=== PATIENT | male | born 1985 | race Caucasian/White ===

== ENCOUNTER 2019-05-17 14:47 | Inpatient (IN) | payer OTHER ==
[2019-05-17 16:58] VITALS: BMI 29.5
--- NOTE | 2019-05-17 17:54 | HP ---
COWS - Scale Resting Pulse: 1= TN 81-100 Sweatin=Flushed/Facial Moisture Restless Observation: 1= Difficult to Sit Still Pupil Size: 0= Normal to Room Light Bone or Joint Aches: 1= Mild Discomfort Runny Nose/ Eye Tearin= Nasal Congestion GI Upset > 30mins: 0= None Tremor Observation: 1= Tremor [place], Not Seen Yawning Observation: 0= None Anxiety or Irritability: 0= None Goose Flesh Skin: 0=Smooth Skin COWS Score: 7 CIWA Score - Admission Criteria OASAS Guidelines: Admission for Medically Managed Detox: Requires at least one of the followin. CIWA greater than 12 2. Seizures within the past 24 hours 3. Delirium tremens within the past 24 hours 4. Hallucinations within the past 24 hours 5. Acute intervention needed for co occurring medical disorder 6. Acute intervention needed for co occurring psychiatric disorder 7. Severe withdrawal that cannot be handled at a lower level of care (continued vomiting, continued diarrhea, abnormal vital signs) requiring intravenous medication and/or fluids 8. Admission ROS [facility] Chief Complaint: detox from heorin and crack Allergies/Adverse Reactions: Allergies Allergy/AdvReac Type Severity Reaction Status Date / Time No Known Allergies Allergy Verified 05/17/19 16:41 History of Present Illness: 33M chronic bursitis of Right shoulder, Right-hand dominant, hiatal hernia, social drinking, polysubstance abuse(heroin, crack, pain pills, tobacco, vaping) , recently taking 1.5-2bundles heroin a day for 4-5days. Last usage was 05/16/19 in evening. Was planning to go to [facility] for detox today but they refused due to broken drug needle in Right hand. Recently, seen at [place] [facility], for a broken needle in Right hand on 05/16/19. They could not retrieve the needle. Had LUE cellulitis, evaluated at and discharged with Cephalexin(500mg , q6h; on day 2 of 10d). Has detox'd x2 at [facility], and x2 at [facility]. Works in construction. Lives with parents. - Ebola screening Have you traveled outside of the country in the last 21 days: No Have you had contact with anyone from an Ebola affected area: No - Review of Systems Constitutional: Fever (fever yesterday morning) EENT: denies: Blurred Vision, Double Vision, Nose Congestion Respiratory: denies: Cough, SOB with Exertion, SOB at Rest, Wheezing, Productive cough Cardiac: denies: Chest Pain, Lightheadedness, Palpitations GI: denies: Constipated, Diarrhea, Nausea, Rectal Bleeding, Vomiting, Tarry Stools : denies: Burning, Dysuria Musculoskeletal: reports: Back Pain, Joint Pain (Right shower) Integumentary: reports: Pruritus (itching to b/l forearms) Neuro: denies: Headache, Numbness, Ataxia, Dizziness Hematology: denies: Blood Clots Psychiatric: reports: Orientated x3, Anxious Patient History - Patient Medical History Hx Anemia: No Hx Asthma: No Hx Chronic Obstructive Pulmonary Disease (COPD): No Hx Cancer: No Hx Cardiac Disorders: No Hx Hypertension: No Hx Hypercholesterolemia: No Hx Pacemaker: No HX Cerebrovascular Accident: No Hx Seizures: No Hx Dementia: No Hx Diabetes: No Hx Gastrointestinal Disorders: Yes (GERD) Hx Liver Disease: No Hx Genitourinary Disorders: No Hx Sexually Transmitted Disorders: No Hx Renal Disease (ESRD): No Hx Thyroid Disease: No Hx Human Immunodeficiency Virus (HIV): No Hx Hepatitis C: No Hx Depression: No Hx Suicide Attempt: No Hx Bipolar Disorder: No Hx Schizophrenia: No - Patient Surgical History Past Surgical History: No Hx Neurologic Surgery: No Hx Cataract Extraction: No Hx Cardiac Surgery: No Hx Lung Surgery: No Hx Breast Surgery: No Hx Breast Biopsy: No Hx Abdominal Surgery: No Hx Appendectomy: No Hx Cholecystectomy: No Hx Genitourinary Surgery: No Hx Section: No Hx Orthopedic Surgery: No Anesthesia Reaction: No - PPD History Date: 09/15/13 - Smoking Cessation Smoking history: Current every day smoker Have you smoked in the past 12 months: Yes Aproximately how many cigarettes per day: 20 Cigars Per Day: 0 Hx Chewing Tobacco Use: No Initiated information on smoking cessation: No - Substances abused Crack Substance route: Injection Frequency: Daily Amount used: $25 Age of first use: 31 Date of last use: 05/16/19 Heroin Substance route: Injection Frequency: Daily Amount used: 2 BUNDLES Age of first use: 27 Date of last use: 05/17/19 Family Disease History - Family Disease History Family Disease History: Other: Grandparent (Paternal GM: HTN) Other Family History: none Admission Physical Exam [facility] - Vital Signs Vital Signs: Vital Signs - 24 hr 05/17/19 16:48 Temperature 98.6 F Pulse Rate 97 H Respiratory 18 Rate Blood Pressure 139/83 - Physical General Appearance: Yes: Disheveled. No: No Apparent Distress HEENTM: No: Pale Conjunctivae R, Pale Conjunctivae L, Scleral Ictenus R, Scleral Ictenus L Respiratory: Yes: Lungs Clear, Normal Breath Sounds. No: Chest Non-Tender, Labored Respiration, No Accessory Muscle Use, Rapid RR, Accessory Muscle Use, Wheezing, Expiration Neck: Yes: Within Normal Limits Cardiology: Yes: Regular Rate, S1, S2. No: Systolic Murmur Abdominal: Yes: Soft. No: Distended, Guarding, Rebound, Tenderness Back: Yes: Within Normal Limits Extremities: Yes: Other (Left hand with marker line, mild nonpitting edema. Right hand with tenderness to ABduction to Right hand, mild TTP of lateral radial head at site of former incision. Multiplel punctate excoriated lesion to forearms b/l) Neurological: Yes: Fully Oriented Integumentary: Yes: Dry, Warm Inpatient Rehab Admission - Rehab Decision to Admit Inpatient rehab admission?: No
[2019-05-17] MEDS ORDERED: MAGNESIUM CITRATE 300 ML BOTTLE PO PRN (18:35)
[2019-05-17] MEDS ORDERED: MENTHOL/PHENOL 1 EACH UD MM PRN (18:35)
[2019-05-17] MEDS ORDERED: ONDANSETRON *ODT* 4 MG TABLET SL PRN (18:35)
[2019-05-17] MEDS ORDERED: METHADONE HCL 10 MG TABLET (FOR DETOX USE ONLY) PO ONE (18:35)
[2019-05-17] MEDS ORDERED: ACETAMINOPHEN 325 MG TABLET (FP) PO PRN ×2 (18:35)
[2019-05-17] MEDS ORDERED: BISMUTH SUBSALICYLATE 524 MG/30 ML UD PO PRN (18:35)
[2019-05-17] MEDS ORDERED: MAGNESIUM HYDROX 2400MG/30ML ORAL SUSPENSION 30 ML CUP PO PRN (18:35)
[2019-05-17] MEDS ORDERED: MAG HYDROX/AL HYDROX/SIMETH 30 ML UNIT-DOSE CUP PO PRN (18:35)
--- NOTE | 2019-05-17 19:35 | PN ---
Teaching Attending Note Name of Resident: Bryce Little ATTENDING PHYSICIAN STATEMENT I saw and evaluated the patient. I reviewed the resident's note and discussed the case with the resident. I agree with the resident's findings and plan as documented. SUBJECTIVE: opiate dep in withdrawal fb hand with celllulitis OBJECTIVE: in withdrawal localized ttp ASSESSMENT AND PLAN: admit to detox protocol local care abx hand surgery p eval if increased pain, ttp
[2019-05-17] MEDS: NICOTINE 7 MG/24 HOURS TOPICAL PATCH TD SCH (20:31)
[2019-05-17] MEDS: THIAMINE HCL 100 MG TABLET (FP) PO SCH (22:19)
[2019-05-17] MEDS: MELATONIN 5 MG TABLETS PO PRN (22:19)
[2019-05-17] MEDS: hydrOXYzine PAMOATE 25 MG CAPSULE (FP) PO PRN (22:20)
[2019-05-17] MEDS: IBUPROFEN 400 MG TABLET (FP) PO PRN (22:32)
[2019-05-18] MEDS ORDERED: METHADONE HCL 10 MG TABLET (FOR DETOX USE ONLY) ONE (09:22)
[2019-05-18] MEDS ORDERED: METHADONE HCL 5 MG TABLET (FOR DETOX USE ONLY) ONE (09:23)
[2019-05-18] MEDS ORDERED: METHADONE (DETOX) 20 MG, METHADONE (DETOX) 5 MG PO ONE (10:00)
[2019-05-18] MEDS: METHOCARBAMOL 500 MG TABLET PO PRN ×3 (10:15→22:22)
[2019-05-18] MEDS: PRENATAL VITAMINS W/ FOLIC ACID TABLET (FP) PO SCH (10:16)
[2019-05-18] MEDS: IBUPROFEN 400 MG TABLET (FP) PO PRN ×3 (10:16→22:21)
[2019-05-18] MEDS: SULFAMETHOXAZOLE/TRIMETHOPRIM 400MG/80MG S.S. TABLET PO SCH ×3 (10:17→22:20)
[2019-05-18] MEDS: NICOTINE 7 MG/24 HOURS TOPICAL PATCH TD SCH (10:18)
--- NOTE | 2019-05-18 10:39 | PN ---
BHS COWS - Scale Resting Pulse: 0= [place] 80 or Below Sweatin= Chills/Flushing Restless Observation: 0= Sits Still Pupil Size: 1= Pupils >than Normal Bone or Joint Aches: 2= Severe Diffuse Aches Runny Nose/ Eye Tearin= Nasal Congestion GI Upset > 30mins: 0= None Tremor Observation of Outstretched Hands: 2= Slight Tremor Visible Yawning Observation: 1= 1-2x During Session Anxiety or Irritability: 2=Irritable/Anxious Goose Flesh Skin: 3=Piloerection COWS Score: 13 BHS Progress Note (SOAP) Subjective: 33 years old male admitted on 05/17/19 for acute opiate withdrawal sx management c/o chronic shoulders 07/01 pain treated with "cortison shot" every 6 months last "shot" 09/2018 discuss medication assisted treatment program right wrist wrapped with Kerlix refuses to be examine but c/o shoulders needed "shot" ADL's independent feed self Objective: 05/18/19 10:39 Vital Signs Temperature 97.3 F L 05/18/19 09:15 Pulse Rate 76 05/18/19 09:15 Respiratory Rate 18 05/18/19 09:15 Blood Pressure 120/75 05/18/19 09:15 O2 Sat by Pulse Oximetry (%) 05/18/19 10:46 lab pending Assessment: 05/18/19 10:47 opiate withdrawal sx alert oriented x 3 irritable 05/18/19 10:48 right wrist cellulitis treated with bactrim ds bid patient tolerated well Plan: continue methadone detox regimen
[2019-05-18 11:47] LABS: HEMATOCRIT 35.7 % (35.4-49); HEMOGLOBIN 12.6 GM/dL (11.7-16.9); MCH 31.1 pg (25.7-33.7); MCHC 35.3 g/dl (32.0-35.9); MEAN CELL VOLUME 88.1 fl (80-96); MEAN PLT VOLUME 7.7 fl (7.5-11.1); PLATELET COUNT 240 K/MM3 (134-434); RBC 4.06 M/mm3 (4.00-5.60); WHITE BLOOD COUNT 6.1 K/mm3 (4.0-10.0)
[2019-05-18 12:26] LABS: ALBUMIN 3.1 g/dl (3.4-5.0); BILIRUBIN,TOTAL 0.4 mg/dL (0.2-1); BLOOD UREA NITROGEN 9.8 mg/dL (7-18); CALCIUM 8.8 mg/dL (8.5-10.1); CREATININE 0.7 mg/dL (0.55-1.3); POTASSIUM 3.5 mmol/L (3.5-5.1)
[2019-05-18] MEDS: RANITIDINE HCL 150 MG TABLET (FP) PO SCH ×2 (13:56→22:43)
[2019-05-18] MEDS: cloNIDine HCL 0.1 MG TABLET PO PRN (22:21)
[2019-05-18] MEDS: THIAMINE HCL 100 MG TABLET (FP) PO SCH (22:21)
[2019-05-18] MEDS: MELATONIN 5 MG TABLETS PO PRN (22:23)
[2019-05-19] MEDS: METHOCARBAMOL 500 MG TABLET PO PRN ×3 (05:45→21:59)
[2019-05-19] MEDS: IBUPROFEN 400 MG TABLET (FP) PO PRN ×3 (05:45→21:59)
[2019-05-19] MEDS ORDERED: METHADONE HCL 10 MG TABLET (FOR DETOX USE ONLY) PO ONE (10:00)
[2019-05-19] MEDS: NICOTINE 7 MG/24 HOURS TOPICAL PATCH TD SCH (10:02)
[2019-05-19] MEDS: PRENATAL VITAMINS W/ FOLIC ACID TABLET (FP) PO SCH (10:03)
[2019-05-19] MEDS: RANITIDINE HCL 150 MG TABLET (FP) PO SCH ×2 (10:03→21:59)
[2019-05-19] MEDS: SULFAMETHOXAZOLE/TRIMETHOPRIM 400MG/80MG S.S. TABLET PO SCH ×2 (10:03→21:59)
--- NOTE | 2019-05-19 10:15 | PN ---
BHS COWS - Scale Resting Pulse: 0= [place] 80 or Below Sweatin= Chills/Flushing Restless Observation: 0= Sits Still Pupil Size: 0= Normal to Room Light Bone or Joint Aches: 1= Mild Discomfort Runny Nose/ Eye Tearin= None GI Upset > 30mins: 1= Stomach Cramp Tremor Observation of Outstretched Hands: 2= Slight Tremor Visible Yawning Observation: 2= >3x During Session Anxiety or Irritability: 2=Irritable/Anxious Goose Flesh Skin: 0=Smooth Skin COWS Score: 9 S Progress Note (SOAP) Subjective: doing well with methadone detox regimen c/o chronic shoulders pain requesting "cortison" shot discuss medication assisted treatment program for pain management as well as avoid opiate induced withdrawal sx patient ate 80% breakfast tolerate food and fluid well ambulating from bed to bathroom steady gait ADLs independent Objective: 05/19/19 10:17 Vital Signs Temperature 98.4 F 05/19/19 09:11 Pulse Rate 71 05/19/19 09:11 Respiratory Rate 17 05/19/19 09:11 Blood Pressure 109/70 05/19/19 09:11 O2 Sat by Pulse Oximetry (%) Laboratory Last Values WBC 6.1 K/mm3 (4.0-10.0) 05/18/19 07:30 RBC 4.06 M/mm3 (4.00-5.60) 05/18/19 07:30 Hgb 12.6 GM/dL (11.7-16.9) 05/18/19 07:30 Hct 35.7 % (35.4-49) D 05/18/19 07:30 MCV 88.1 fl (80-96) 05/18/19 07:30 MCH 31.1 pg (25.7-33.7) 05/18/19 07:30 MCHC 35.3 g/dl (32.0-35.9) 05/18/19 07:30 RDW 13.0 % (11.9-15.9) 05/18/19 07:30 Plt Count 240 K/MM3 (134-434) 05/18/19 07:30 MPV 7.7 fl (7.5-11.1) 05/18/19 07:30 Sodium 143 mmol/L (136-145) 05/18/19 07:30 Potassium 3.5 mmol/L (3.5-5.1) 05/18/19 07:30 Chloride 106 mmol/L (98-107) 05/18/19 07:30 Carbon Dioxide 28 mmol/L (21-32) 05/18/19 07:30 Anion Gap 9 MMOL/L (8-16) 05/18/19 07:30 BUN 9.8 mg/dL (7-18) 05/18/19 07:30 Creatinine 0.7 mg/dL (0.55-1.3) 05/18/19 07:30 Est GFR (CKD-EPI)AfAm 145.74 05/18/19 07:30 Est GFR (CKD-EPI)NonAf 125.75 05/18/19 07:30 Random Glucose 74 mg/dL (74-106) 05/18/19 07:30 Calcium 8.8 mg/dL (8.5-10.1) 05/18/19 07:30 Total Bilirubin 0.4 mg/dL (0.2-1) 05/18/19 07:30 AST 25 U/L (15-37) 05/18/19 07:30 ALT 46 U/L (13-61) 05/18/19 07:30 Alkaline Phosphatase 58 U/L (45-117) 05/18/19 07:30 Total Protein 6.0 g/dl (6.4-8.2) L 05/18/19 07:30 Albumin 3.1 g/dl (3.4-5.0) L 05/18/19 07:30 RPR Titer Nonreactive (NONREACTIVE) 05/18/19 07:30 lab noted Assessment: 05/19/19 10:18 opiate withdrawal sx alert oriented x 3 speech clearly and coherently steady gait skin moist warm denies dizziness no nausea no vomiting Plan: continue methadone detox regimen
[2019-05-19] MEDS: THIAMINE HCL 100 MG TABLET (FP) PO SCH (21:58)
[2019-05-19] MEDS: cloNIDine HCL 0.1 MG TABLET PO PRN (23:35)
[2019-05-19] MEDS: MELATONIN 5 MG TABLETS PO PRN (23:35)
[2019-05-19] MEDS: hydrOXYzine PAMOATE 25 MG CAPSULE (FP) PO PRN (23:36)
[2019-05-20] MEDS: METHOCARBAMOL 500 MG TABLET PO PRN ×3 (04:35→22:03)
[2019-05-20] MEDS: IBUPROFEN 400 MG TABLET (FP) PO PRN ×3 (04:35→22:04)
[2019-05-20] MEDS ORDERED: METHADONE (DETOX) 10 MG, METHADONE (DETOX) 5 MG PO ONE (10:00)
[2019-05-20] MEDS ORDERED: METHADONE HCL 10 MG TABLET (FOR DETOX USE ONLY) PO ONE (10:00)
[2019-05-20] MEDS: SULFAMETHOXAZOLE/TRIMETHOPRIM 400MG/80MG S.S. TABLET PO SCH ×2 (10:17→22:02)
[2019-05-20] MEDS: RANITIDINE HCL 150 MG TABLET (FP) PO SCH ×2 (10:17→22:03)
[2019-05-20] MEDS: PRENATAL VITAMINS W/ FOLIC ACID TABLET (FP) PO SCH (10:17)
[2019-05-20] MEDS: NICOTINE 7 MG/24 HOURS TOPICAL PATCH TD SCH (10:23)
--- NOTE | 2019-05-20 13:01 | PN ---
BHS COWS - Scale Resting Pulse: 0= [place] 80 or Below Sweatin= No chills or Flushing Restless Observation: 1= Difficult to Sit Still Pupil Size: 1= Pupils >than Normal Bone or Joint Aches: 1= Mild Discomfort Runny Nose/ Eye Tearin= Nasal Congestion GI Upset > 30mins: 1= Stomach Cramp Tremor Observation of Outstretched Hands: 1= Tremor [place], Not Seen Yawning Observation: 1= 1-2x During Session Anxiety or Irritability: 2=Irritable/Anxious Goose Flesh Skin: 0=Smooth Skin COWS Score: 9 S Progress Note (SOAP) Subjective: alert,irritable,anxious,interrupted sleep,pain in the body,less swelling and redness of right hand Objective: 05/20/19 12:58 Vital Signs Temperature 97.0 F L 05/20/19 09:27 Pulse Rate 80 05/20/19 09:27 Respiratory Rate 18 05/20/19 09:27 Blood Pressure 119/73 05/20/19 09:27 O2 Sat by Pulse Oximetry (%) Assessment: 05/20/19 12:59 withdrawal symptom but less Plan: continue detox methadone regimen,discharge in am ,continue bactrim ds 1 tab po bid for 7 days,has appointment to see hand surgeon tomorrow for evaluation of fb and cellulitis of right hand
[2019-05-20] MEDS: MELATONIN 5 MG TABLETS PO PRN (22:02)
[2019-05-20] MEDS: THIAMINE HCL 100 MG TABLET (FP) PO SCH (22:03)
[2019-05-20] MEDS: hydrOXYzine PAMOATE 25 MG CAPSULE (FP) PO PRN (22:06)
[2019-05-21] MEDS: METHOCARBAMOL 500 MG TABLET PO PRN (05:49)
[2019-05-21] MEDS ORDERED: METHADONE HCL 5 MG TABLET (FOR DETOX USE ONLY) PO ONE (06:00)
[2019-05-21] MEDS: IBUPROFEN 400 MG TABLET (FP) PO PRN (06:07)
[2019-05-21 06:33] VITALS: BP 125/79; PULSE 75; TEMP 96.7
--- NOTE | 2019-05-21 07:57 | PN ---
S CIWA - CIWA Score Nausea/Vomitin-No Nausea/No Vomiting Muscle Tremors: 1-None Visible, but [place] Anxiety: 1-Mildly Anxious Agitation: 1-Slight > Activity Paroxysmal Sweats: No Perspiration Orientation: 0-Oriented Tacttile Disturbances: 0-None Auditory Disturbances: 0-None Visual Disturbances: 0-None Headache: 0-None Present CIWA-Ar Total Score: 3 BHS Progress Note (SOAP) Subjective: alert,no complaint Objective: 05/21/19 07:55 Vital Signs Temperature 96.7 F L 05/21/19 06:32 Pulse Rate 75 05/21/19 06:32 Respiratory Rate 18 05/21/19 06:32 Blood Pressure 125/79 05/21/19 06:32 O2 Sat by Pulse Oximetry (%) Assessment: 05/21/19 07:55 detox completed,no withdrawal symptom Plan: discharge today,follow up with hand surgeon for fb in right hand,follow up with [facility] as arrangement
--- NOTE | 2019-05-21 08:02 | DS ---
[facility] Detox Discharge Summary Admission Date: 05/17/19 Discharge Date: 05/21/19 - History Present History: Cocaine Dependence, Opioid Dependence Additional Comments: continue bactrim ds 1 tab po bid for 7 dats,to [facility] as arrangement,to see hand surgeon as arrangement Pertinent Past History: ivdu fb of right hand with cellulitis - Physical Exam Results Vital Signs: Vital Signs Temperature 96.7 F L 05/21/19 06:32 Pulse Rate 75 05/21/19 06:32 Respiratory Rate 18 05/21/19 06:32 Blood Pressure 125/79 05/21/19 06:32 O2 Sat by Pulse Oximetry (%) Pertinent Admission Physical Exam Findings: withdrawal sign and symptom Laboratory Last Values WBC 6.1 K/mm3 (4.0-10.0) 05/18/19 07:30 RBC 4.06 M/mm3 (4.00-5.60) 05/18/19 07:30 Hgb 12.6 GM/dL (11.7-16.9) 05/18/19 07:30 Hct 35.7 % (35.4-49) D 05/18/19 07:30 MCV 88.1 fl (80-96) 05/18/19 07:30 MCH 31.1 pg (25.7-33.7) 05/18/19 07:30 MCHC 35.3 g/dl (32.0-35.9) 05/18/19 07:30 RDW 13.0 % (11.9-15.9) 05/18/19 07:30 Plt Count 240 K/MM3 (134-434) 05/18/19 07:30 MPV 7.7 fl (7.5-11.1) 05/18/19 07:30 Sodium 143 mmol/L (136-145) 05/18/19 07:30 Potassium 3.5 mmol/L (3.5-5.1) 05/18/19 07:30 Chloride 106 mmol/L (98-107) 05/18/19 07:30 Carbon Dioxide 28 mmol/L (21-32) 05/18/19 07:30 Anion Gap 9 MMOL/L (8-16) 05/18/19 07:30 BUN 9.8 mg/dL (7-18) 05/18/19 07:30 Creatinine 0.7 mg/dL (0.55-1.3) 05/18/19 07:30 Est GFR (CKD-EPI)AfAm 145.74 05/18/19 07:30 Est GFR (CKD-EPI)NonAf 125.75 05/18/19 07:30 Random Glucose 74 mg/dL (74-106) 05/18/19 07:30 Calcium 8.8 mg/dL (8.5-10.1) 05/18/19 07:30 Total Bilirubin 0.4 mg/dL (0.2-1) 05/18/19 07:30 AST 25 U/L (15-37) 05/18/19 07:30 ALT 46 U/L (13-61) 05/18/19 07:30 Alkaline Phosphatase 58 U/L (45-117) 05/18/19 07:30 Total Protein 6.0 g/dl (6.4-8.2) L 05/18/19 07:30 Albumin 3.1 g/dl (3.4-5.0) L 05/18/19 07:30 RPR Titer Nonreactive (NONREACTIVE) 05/18/19 07:30 - Treatment Hospital Course: Detox Protocol Followed, Detoxed Safely, Responded well, Discharged Condition Good, Rehab Referral Accepted Patient has Accepted a Rehab Referral to: [facility] - Medication Discharge Medications: Ambulatory Orders Esomeprazole Mag Trihydrate [Nexium] 40 mg PO DAILY #30 capsule.ec 11/02/13 Cephalexin [Keflex] 500 mg PO QID 05/17/19 Sulfamethoxazole/Trimethoprim [Bactrim SS -] 1 each PO BID 7 Days #14 tablet - Diagnosis (1) Opioid dependence Current Visit: No Status: Active (2) Cocaine dependence Current Visit: No Status: Acute (3) Gastroesophageal reflux disease Current Visit: No Status: Acute (4) Foreign body of right hand Current Visit: Yes Status: Acute (5) Cellulitis of right hand Current Visit: Yes Status: Acute - AMA Did Patient Leave Against Medical Advice: No
[2019-05-21] MEDS ORDERED: METHADONE HCL 10 MG TABLET (FOR DETOX USE ONLY) PO ONE (10:00)
[2019-05-22] MEDS ORDERED: METHADONE HCL 5 MG TABLET (FOR DETOX USE ONLY) PO ONE (06:00)
== END 2019-05-21 09:28 | disposition home or self-care (01) | DRG 773 ==
LOC: YASAS 14:47 → Y3N 19:16
PROVIDERS: ADMIT Surgery; ATTEND Surgery
PROC: HZ2ZZZZ Detoxification Services for Substance Abuse Treatment (ICD-10-PCS; principal; 2019-05-17)
DX: F11.23 Opioid dependence with withdrawal (principal); F14.20 Cocaine dependence, uncomplicated; F17.210 Nicotine dependence, cigarettes, uncomplicated; K21.9 Gastro-esophageal reflux disease without esophagitis; L03.113 Cellulitis of right upper limb; S60.551A Superficial foreign body of right hand, initial encounter; W46.1XXA Contact with contaminated hypodermic needle, initial encounter; Y93.89 Activity, other specified; Y92.89 Other specified places as the place of occurrence of the external cause; Y99.8 Other external cause status
CPT/HCPCS: 36415; 80053; 85027; 86593; J0735

== ENCOUNTER 2020-07-10 15:18 | Inpatient (IN) | payer OTHER ==
--- OUTSIDE RECORDS SUMMARY | 2020-07-10 15:23 | XMS ---
:1985 Author Organization [facility] Care Team Providers Name Role Phone ADRIAN GIBBS Unavailable Unavailable MOHSEN GUALLPA Unavailable Unavailable NURSE, CONSULT Unavailable Unavailable Kiesha Gerber DO Unavailable Unavailable MALACHI ROSALES Unavailable Unavailable TRAN AGUILAR Unavailable Unavailable Re-disclosure Warning The records that you are about to access may contain information from federally- assisted alcohol or drug abuse programs. If such information is present, then the following federally mandated warning applies: This information has been disclosed to you from records protected by federal confidentiality rules (42 CFR part 2). The federal rules prohibit you from making any further disclosure of this information unless further disclosure is expressly permitted by the written consent of the person to whom it pertains or as otherwise permitted by 42 CFR part 2. A general authorization for the release of medical or other information is NOT sufficient for this purpose. The Federal rules restrict any use of the information to criminally investigate or prosecute any alcohol or drug abuse patient.The records that you are about to access may contain highly sensitive health information, the redisclosure of which is protected by Article 27-F of the [facility] Public Health law. If you continue you may haveaccess to information: Regarding HIV / AIDS; Provided by facilities licensed or operated by the [facility] Office of Mental Health; or Provided by the [facility] Office for People With Developmental Disabilities. If such information is present, then the following [facility] mandated warning applies: This information has been disclosed to you from confidential records which are protected by state law. State law prohibits you from making any further disclosure of this information without the specific written consent of the person to whom it pertains, or as otherwise permitted by law. Any unauthorized further disclosure in violation of state law may result in a fine or mcc sentence or both. A general authorization for the release of medical or other information is NOT sufficient authorization for further disclosure. Allergies and Adverse Reactions Type Description Substance Reaction Status Data Source(s ) Miscellaneous allergy Nut Tree Nut Tree ITCHY [facility] Food allergy grape grape PRURITUS/ITCHIN [facility] Food allergy peanut peanut ITCHY MOUTH/THR [facility] Encounters Encounter Providers Location Date Indications Data Source(s ) Emergency Attender: 05/16/2019 NEEDLE BROKE IN [place] [facility] Kiesha Gerber 09:54:00 PM RIGHT [facility] EDT - 05/17/2019 01:20:00 AM EDT NEEDLE BROKE IN RIGHT ARM WALK Patient discharged. Inpatient Attender: RODGER KAMINSKI 05/09/2019 opiate [place] VITTORIOAdmitter: RODGER 08:52:00 AM EDT [facility] VITTORIOConsultant: - 05/10/2019 ADRIANRED MILNERTASEConsultant: 03:00:00 PM EDT CONSULT NURSEConsultant: RODGER AGUILAR opiate withdrawal Patient discharged. Inpatient Attender: RODGER KAMINSKI 05/04/2019 OPIATE [place] VITTORIOAttender: MOHSEN 10:18:00 PM EDT [facility] RIZQALLAAdmitter: RODGER - 05/09/2019 VITTORIOConsultant: 08:50:00 AM EDT RODGER VITTORIOConsultant: MALACHI ROSALES OPIATE WITHDRAWAL Patient discharged. P 02/04/2011 05:41:00 PM EDT FOR SUTUR E REMOVAL [facility] (ARRV-AUTO) FOR SUTURE REMOVAL (ARRV-AUTO) Insurance Providers Payer name Policy type Policy ID Covered Covered democrat's Policy P branden / Coverage democrat ID relationship to Joe Inf ormation type joe BEACON [id number] SP [id number] 300 HEALTH STRGY-AFF BEACON/AFFIN [id number] Patient is [id number] ITY HEALTH Insured PLAN AFFINITY [id number] Patient is [id number] HEALTH PLAN Insured BEACON [id number] SP [id number] 300 HEALTH STRGY-AFF [place] [id number] PT [id number] 300 HEALTH PLAN [place] [id number] SP [id number] 300 HEALTH STRGY-AFF SELF PAY PT SLIDING SCALE 0% [place] [id number] [place] [id number] Insured Problems, Conditions, and Diagnoses Code Display Name Description Problem Type Effective Data Dates Source(s) Z79.899 Other nursing home OTHER USP Diagnosis 05/18/2019 [place] (current) drug (CURRENT) DRUG 11:30:00 AM Hospi [facility] therapy THERAPY EDT Z86.19 Personal history PERSONAL HISTORY Diagnosis 05/18/2019 [place]ck of other OF OTHER 11:30:00 AM Hospital infectious and INFECTIOUS AND EDT parasitic diseases PARASITIC DISEASES F17.210 Nicotine NICOTINE Diagnosis 05/18/2019 [place] dependence, DEPENDENCE, 11:30:00 AM Hospital cigarettes, CIGARETTES, EDT uncomplicated UNCOMPLICATED F12.20 Cannabis CANNABIS Diagnosis 05/18/2019 [place] dependence, DEPENDENCE, 11:30:00 AM Hospital uncomplicated UNCOMPLICATED EDT F14.20 Cocaine COCAINE Diagnosis 05/18/2019 [place] dependence, DEPENDENCE, 11:30:00 AM Hospital uncomplicated UNCOMPLICATED EDT F11.23 Opioid dependence OPIOID DEPENDENCE Diagnosis 05/18/2019 [place] with withdrawal WITH WITHDRAWAL 11:30:00 AM [facility] pital EDT F19.10 Other psychoactive F19.10 Diagnosis 05/16/2019 [place] substance abuse, 11:45:00 PM Hospita l uncomplicated EDT M79.5 Residual foreign M79.5 Diagnosis 05/16/[address] body in soft 11:45:00 PM Hospital tissue EDT Y99.9 Unspecified Y99.9 Diagnosis 05/16/2019 [place] external cause 11:45:00 PM Hospital status EDT Y92.[address] Y92.9 Diagnosis 05/16/2019 [place] or not applicable 11:45:00 PM Hospit al EDT Y93.89 Activity, other Y93.89 Diagnosis 05/16/2019 [facility] [place] [facility] specified 11:45:00 PM Hospital EDT W46.0XXA Contact with W46.0XXA Diagnosis 05/16/2019 [place] hypodermic needle, 11:45:00 PM Hospi ann[facility]ie initial encounter EDT S50.851A Superficial S50.851A Diagnosis 05/16/2019 [place] foreign body of 11:45:00 PM Hospital right forearm, EDT initial encounter Z81.3 Family history of FAMILY HISTORY OF Diagnosis 05/14/2019 [place] other psychoactive OTHER PSYCHOACTIVE 09:25:00 AM [facility] substance abuse SUBSTANCE ABUSE EDT and dependence AND DEPENDENCE B19.20 Unspecified viral UNSPECIFIED VIRAL Diagnosis 05/14/2019 [place] hepatitis C HEPATITIS C 09:25:00 AM Hospital without hepatic WITHOUT HEPATIC EDT coma COMA Surgeries/Procedures Procedure Description Date Indications Data Source(s) Radiography of forearm 05/16/2019 [facility] (procedure) 12:00:00 AM EDT Radiography of wrist 05/16/2019 [facility] (procedure) 12:00:00 AM EDT Vital Signs ID Date Data Source UNK Name Value Range Interpretation Code Description Data Source(s) Diastolic blood 75 mm[Hg] 75 mm[Hg] [facility] Systolic blood 151 mm[Hg] 151 mm[Hg] [facility] Respiratory rate 19 /min 19 /min [facility] Heart rate 100 /min 100 /min [facility] Body temperature 37.07707 37.38656 [facility] Body temperature 99.7 [degF] 99.7 [degF] [facility] Body mass index 29.0 kg/m2 29.0 kg/m2 [facility] (BMI) [Ratio] Hospital Body weight 200.42 200.42 [lb_av] [facility] [lb_av] Hospital ID Date Data Source [id number] 03/08/2020 09:39:10 AM EDT [facility] Name Value Range Interpretation Code Description Data Source(s) Weight 89.38 KG 89.38 KG [facility] Height 175.26 CM 175.26 CM [facility] status N N [place] salmon [Interpretation] - Reported ID Date Data Source [id number] 03/08/2020 09:38:43 AM EDT [facility] Name Value Range Interpretation Code Description Data Source(s) Weight 88.48 KG 88.48 KG [facility] Height 175.26 CM 175.26 CM [facility] status N N [place] salmon [Interpretation] - Reported
--- NOTE | 2020-07-10 15:47 | BHS.RME ---
2019 N Coronavirus Screen - COVID-19 Screening Questions Dx of COVID-19 or had a positive test in the last 4 weeks?: No Contact with known/suspected COVID patient in last 14 days?: No Any of these symptoms or contact with someone who has?: None Traveled domestically/internationally in the last 14 days?: No Screen score: 0 Screen result: Further Evaluation Substance Use & Tx History - Substance Use History Heroin Substance amount: 8 bags Frequency of use: Daily Substance route: Injection (ex: intravenous or skin popping) Date of Last Use: 07/08/20 Cocaine- Powder Substance amount: "not a lot" Frequency of use: More than 3 times per week Substance route: Injection (ex: intravenous or skin popping) Date of Last Use: 07/08/20 Cocaine-Crack Substance amount: $50 Frequency of use: Less than 3 times per week Substance route: Smoking Date of Last Use: 07/01/20 Benzodiazepines Substance amount: 1/4 bar Frequency of use: Less than 3 times per week Substance route: Oral Date of Last Use: 06/26/20 Nicotine Substance amount: 1 pack Frequency of use: Daily Substance route: Oral Date of Last Use: 07/09/20 COWS - Scale Resting Pulse: 1= [place] 81-100 Sweatin=Flushed/Facial Moisture Restless Observation: 3= Extraneous Movement Pupil Size: 1= Pupils >than Normal Bone or Joint Aches: 2= Severe Diffuse Aches Runny Nose/ Eye Tearin= Runny Nose/Eyes GI Upset > 30mins: 2= Nausea/Diarrhea Tremor Observation: 4= Gross Tremor/Twitching Yawning Observation: 2= >3x During Session Anxiety or Irritability: 1=Feels Anxious/Irritable Goose Flesh Skin: 3=Piloerection COWS Score: 23
--- NOTE | 2020-07-10 16:29 | HP ---
COWS - Scale Resting Pulse: 0= [place] 80 or Below Sweatin=Flushed/Facial Moisture Restless Observation: 1= Difficult to Sit Still Pupil Size: 1= Pupils >than Normal Bone or Joint Aches: 4=Acute Joint/Muscle Pain Runny Nose/ Eye Tearin= Runny Nose/Eyes GI Upset > 30mins: 3= Vomiting/Diarrhea (vomiting x 10, diarrhea x 3) Tremor Observation: 4= Gross Tremor/Twitching Yawning Observation: 2= >3x During Session Anxiety or Irritability: 2=Irritable/Anxious Goose Flesh Skin: 3=Piloerection COWS Score: 24 CIWA Score - Admission Criteria OASAS Guidelines: Admission for Medically Managed Detox: Requires at least one of the followin. CIWA greater than 12 2. Seizures within the past 24 hours 3. Delirium tremens within the past 24 hours 4. Hallucinations within the past 24 hours 5. Acute intervention needed for co occurring medical disorder 6. Acute intervention needed for co occurring psychiatric disorder 7. Severe withdrawal that cannot be handled at a lower level of care (continued vomiting, continued diarrhea, abnormal vital signs) requiring intravenous medication and/or fluids 8. Admitting History and Physical - Smoking History Smoking history: Current every day smoker Have you smoked in the past 12 months: Yes Aproximately how many cigarettes per day: 20 - Alcohol/Substance Use Hx Alcohol Use: No Admission ROS [facility] Chief Complaint: Heroin withdrawal symptoms Allergies/Adverse Reactions: Allergies Allergy/AdvReac Type Severity Reaction Status Date / Time No Known Allergies Allergy Verified 07/10/20 17:48 History of Present Illness: 34 years old male with 6 years of heroin dependence is seeking admission to detox. His last admission was for the period 05/17/2019 - 05/21/2019 and he relapsed a couple of months ago. He uses 8 bags of heroin daily. He has medical history of GERD, denies psych. history and suicidal ideation at this time. He works in construction, lives with his parents and denies pending legal issues. Patient reports blackouts and overdose (last overdose was in 2017). He states that he has Narcan at home. Exam Limitations: Clinical Condition (active withdrawal) - Ebola screening Have you traveled outside of the country in the last 21 days: No Have you had contact with anyone from an Ebola affected area: No Have you been sick,other than usual withdrawal symptoms: No Do you have a fever: No - Review of Systems Constitutional: Chills, Malaise, Night Sweats, Changes in sleep EENT: reports: Other (runny nose) Respiratory: reports: No Symptoms reported Cardiac: reports: No Symptoms Reported GI: reports: Diarrhea (x 3), Nausea, Poor Appetite, Poor Fluid Intake, Vomiting (x 10), Abdominal cramping : reports: No Symptoms Reported Musculoskeletal: reports: No Symptoms Reported Integumentary: reports: Dryness, Flushing Neuro: reports: Tremors Endocrine: reports: No Symptoms Reported Hematology: reports: No Symptoms Reported Psychiatric: reports: Anxious Other Systems: Reviewed and Negative Patient History - Patient Medical History Hx Anemia: No Hx Asthma: No Hx Chronic Obstructive Pulmonary Disease (COPD): No Hx Cancer: No Hx Cardiac Disorders: No Hx Congestive Heart Failure: No Hx Hypertension: No Hx Hypercholesterolemia: No Hx Pacemaker: No HX Cerebrovascular Accident: No Hx Seizures: No Hx Dementia: No Hx Diabetes: No Hx Gastrointestinal Disorders: Yes (GERD) Hx Liver Disease: No Hx Genitourinary Disorders: No Hx Sexually Transmitted Disorders: No Hx Renal Disease (ESRD): No Hx Thyroid Disease: No Hx Human Immunodeficiency Virus (HIV): No (Negative) Hx Hepatitis C: No Hx Depression: No Hx Suicide Attempt: No (Denies suicidal ideation at this time) Hx Bipolar Disorder: No Hx Schizophrenia: No - Patient Surgical History Past Surgical History: No Hx Neurologic Surgery: No Hx Cataract Extraction: No Hx Cardiac Surgery: No Hx Lung Surgery: No Hx Abdominal Surgery: No Hx Appendectomy: No Hx Cholecystectomy: No Hx Genitourinary Surgery: No Hx Orthopedic Surgery: No Anesthesia Reaction: No - PPD History Previous Implant?: Yes Documented Results: Negative w/proof Implanted On Prior [facility] Admission?: Yes Date: 09/15/13 PPD to be Administered?: Yes - Reproductive History Patient is a Female of Child Bearing Age (11 -55 yrs old): No (Male) - Smoking Cessation Smoking history: Current every day smoker Have you smoked in the past 12 months: Yes Aproximately how many cigarettes per day: 20 Hx Chewing Tobacco Use: No Initiated information on smoking cessation: Yes 'Breaking Loose' booklet given: 07/10/20 - Substance & Tx. History Hx Alcohol Use: No Hx Substance Use: Yes Substance Use Type: Cocaine, Heroin Hx Substance Use Treatment: Yes ([facility]) - Substances abused Heroin Substance route: Injection Frequency: Daily Amount used: 8 bags Age of first use: 28 Date of last use: 07/08/[address] [facility] - Physical General Appearance: Yes: Severe Distress, Tremorous, Irritable, Sweating HEENTM: Yes: Rhinorrhea Respiratory: Yes: Rapid RR (RR 25) Neck: Yes: Within Normal Limits Breast: Yes: Breast Exam Deferred Cardiology: Yes: Regular Rhythm, Regular Rate Abdominal: Yes: Within Normal Limits Genitourinary: Yes: Within Normal Limits Back: Yes: Normal Inspection Musculoskeletal: Yes: Within Normal Limits Extremities: Yes: Tremors Neurological: Yes: Within Normal Limits Integumentary: Yes: Warm, Track De [place] (both hands) Lymphatic: Yes: Within Normal Limits - Diagnostic (1) Opioid dependence with withdrawal Current Visit: Yes Status: Acute (2) Nicotine dependence Current Visit: Yes Status: Acute Qualifiers: Nicotine product type: cigarettes Substance use status: in withdrawal Qualified Code(s): F17.213 - Nicotine dependence, cigarettes, with withdrawal (3) Cocaine dependence Current Visit: Yes Status: Chronic (4) Gastroesophageal reflux disease Current Visit: Yes Status: Chronic Qualifiers: Esophagitis presence: esophagitis presence not specified Qualified Code(s): K21.9 - Gastro-esophageal reflux disease without esophagitis Cleared for Admission [facility] - Detox or Rehab [facility] Level of Care: Medically Managed Detox Regimen/Protocol: Methadone Claeared for Rehab Admission: No Urine Drug Screen - Control Is test valid?: Yes - Results Drug screen NEGATIVE: No Urine drug screen results: DENNY-Cocaine, FEN-Fentanyl, MOP-Opiates Inpatient Rehab Admission - Rehab Decision to Admit Inpatient rehab admission?: No
[2020-07-10] MEDS ORDERED: NICOTINE POLACRILEX 2 MG GUM BUC PRN (16:45)
[2020-07-10] MEDS ORDERED: ONDANSETRON *ODT* 4 MG TABLET SL PRN (16:45)
[2020-07-10] MEDS ORDERED: IBUPROFEN 400 MG TABLET (FP) PO PRN (16:45)
[2020-07-10] MEDS ORDERED: METHADONE HCL 10 MG TABLET (FOR DETOX USE ONLY) PO ONE (16:45)
[2020-07-10] MEDS ORDERED: BISMUTH SUBSALICYLATE 524 MG/30 ML UD PO PRN (16:45)
[2020-07-10] MEDS ORDERED: ACETAMINOPHEN 325 MG TABLET (FP) PO PRN ×2 (16:45)
[2020-07-10] MEDS ORDERED: MENTHOL/PHENOL 1 EACH UD MM PRN (16:45)
[2020-07-10] MEDS ORDERED: cloNIDine HCL 0.1 MG TABLET PO PRN (16:45)
[2020-07-10] MEDS ORDERED: MAGNESIUM CITRATE 300 ML BOTTLE PO PRN (16:45)
[2020-07-10] MEDS ORDERED: MAGNESIUM HYDROX 2400MG/30ML ORAL SUSPENSION 30 ML CUP PO PRN (16:45)
[2020-07-10 17:05] VITALS: BMI 32.3
--- OUTSIDE RECORDS SUMMARY | 2020-07-10 17:07 | XMS ---
[...] is protected by Article 27-F of the [facility] Public Health law. If you continue you may haveaccess to information: Regarding HIV / AIDS; Provided by facilities licensed or operated by the [facility] Office of Mental Health; or Provided by the [facility] Office for People With Developmental Disabilities. If such information is present, then the following [facility] mandated warning applies: This information has been [...] law may result in a fine or long-term sentence or both. A general authorization for the release of medical or other information is NOT sufficient authorization for further disclosure. Allergies and Adverse Reactions Type Description Substance Reaction Status Data Source(s ) Miscellaneous allergy Nut Tree Nut Tree ITCHY [facility] Food allergy grape grape PRURITUS/ITCHIN [facility] Food allergy peanut peanut ITCHY MOUTH/THR [facility] Encounters Encounter Providers Location Date Indications Data Source(s ) Emergency Attender: 05/16/2019 NEEDLE BROKE IN [facility] Kiesha Gerber 09:54:00 PM RIGHT [facility] EDT - 05/17/2019 01:20:00 AM EDT NEEDLE BROKE IN RIGHT ARM WALK Patient discharged. Inpatient Attender: RODGER KAMINSKI 05/09/2019 opiate [facility] VITTORIOAdmitter: RODGER 08:52:00 AM EDT [facility] VITTORIOConsultant: - 05/10/2019 ADRIANRED MILNERTASEConsultant: 03:00:00 PM EDT CONSULT NURSEConsultant: RODGER AGIULAR opiate withdrawal Patient discharged. Inpatient Attender: RODGER KAMINSKI 05/04/2019 OPIATE [facility] VITTORIOAttender: MOHSEN 10:18:00 PM EDT [facility] RIZQALLAAdmitter: RODGER - 05/09/2019 VITTORIOConsultant: 08:50:00 AM EDT [facility]OD[facility] VITTORIOConsultant: MALACHI ROSALES OPIATE WITHDRAWAL Patient discharged. P 02/04/2011 05:41:00 PM EDT FOR SUTUR E REMOVAL [facility] (ARRV-AUTO) FOR SUTURE REMOVAL (ARRV-AUTO) Insurance Providers Payer name Policy type Policy ID Covered Covered democrat's Policy P branden / Coverage democrat ID relationship to Joe Inf ormation type joe BEACON [id number] SP [id number] 300 HEALTH STRGY-AFF BEACON/AFFIN [id number] Patient is [id number] ITY HEALTH Insured PLAN AFFINITY [id number] Patient is [id number] HEALTH PLAN Insured BEACON [id number] SP [id number] 300 HEALTH STRGY-AFF AFFINITY [id number] PT [id number] 300 HEALTH PLAN [place] [id number] SP [id number] 300 HEALTH STRGY-AFF SELF PAY PT SLIDING SCALE 0% [place] [id number] [place] [id number] Insured Problems, Conditions, and Diagnoses Code Display Name Description Problem Type Effective Data Dates Source(s) Z79.899 Other mcc OTHER [facility] Diagnosis 05/18/2019 [place] (current) drug (CURRENT) [...] [place] with withdrawal WITH WITHDRAWAL 11:30:00 AM [facility] pital EDT F19.10 Other psychoactive F19.10 Diagnosis 05/16/2019 [place] substance abuse, 11:45:00 PM Hospita l uncomplicated EDT M79.5 Residual foreign M79.5 Diagnosis 05/16/[address] [facility] body in soft 11:45:00 PM Hospital tissue EDT Y99.9 Unspecified Y99.9 Diagnosis 05/16/2019 [place] external cause 11:45:00 PM Hospital status EDT Y92.[address] Y92.9 Diagnosis 05/16/2019 [facility] [place] [facility] or not applicable 11:45:00 PM Hospit al EDT Y93.89 Activity, other Y93.89 Diagnosis 05/16/2019 [facility] specified 11:45:00 PM Hospital EDT W46.0XXA Contact with W46.0XXA Diagnosis 05/16/2019 [place] hypodermic needle, 11:45:00 PM Hospi annmarie initial encounter EDT S50.851A Superficial S50.851A Diagnosis 05/16/2019 [place] foreign body of 11:45:00 PM Hospital right forearm, EDT initial encounter Z81.3 Family history of FAMILY HISTORY OF Diagnosis 05/14/2019 [facility] other psychoactive OTHER PSYCHOACTIVE 09:25:00 AM [facility] substance abuse SUBSTANCE ABUSE EDT and dependence AND DEPENDENCE B19.20 Unspecified viral UNSPECIFIED VIRAL Diagnosis 05/14/2019 [facility] hepatitis C HEPATITIS C 09:25:00 AM Hospital without hepatic WITHOUT HEPATIC EDT coma COMA Surgeries/Procedures Procedure Description Date Indications Data Source(s) Radiography of forearm 05/16/2019 [facility] (procedure) 12:00:00 AM EDT Radiography of wrist 05/16/2019 [facility] (procedure) 12:00:00 AM EDT Vital Signs ID Date Data Source UNK Name Value Range Interpretation Code Description Data Source(s) Diastolic blood 75 mm[Hg] 75 mm[Hg] [facility] Systolic blood 151 mm[Hg] 151 mm[Hg] [facility] pressure [facility] Respiratory rate 19 /min 19 /min [facility] Heart rate 100 /min 100 /min [facility] Body temperature 37.[address] [facility] Body temperature 99.7 [degF] 99.7 [degF] [facility] Body mass index 29.0 kg/m2 29.0 kg/m2 [facility] (BMI) [Ratio] Hospital Body weight 200.42 200.42 [lb_av] [facility] [lb_av] Hospital ID Date Data Source [id number] 03/08/2020 09:39:[address] [facility] l Name Value Range Interpretation Code Description Data Source(s) Weight 89.38 KG 89.38 KG [facility] Height 175.26 CM 175.26 CM [facility] status N N [place] salmon [Interpretation] - Reported ID Date Data Source [id number] 03/08/2020 09:38:[address] [facility] l Name Value Range Interpretation Code Description Data Source(s) Weight 88.48 KG 88.48 KG [facility] Height 175.26 CM 175.26 CM [facility] status N N [place] salomn [Interpretation] - Reported
[2020-07-10] MEDS: THIAMINE HCL 100 MG TABLET (FP) PO SCH (21:53)
[2020-07-10] MEDS: MELATONIN 5 MG TABLETS PO SCH (21:53)
[2020-07-11] MEDS ORDERED: METHADONE HCL 5 MG TABLET (FOR DETOX USE ONLY) ONE (09:29)
[2020-07-11] MEDS ORDERED: METHADONE HCL 10 MG TABLET (FOR DETOX USE ONLY) ONE (09:29)
[2020-07-11] MEDS ORDERED: METHADONE (DETOX) 20 MG, METHADONE (DETOX) 5 MG PO ONE (10:00)
[2020-07-11 10:05] LABS: HEMATOCRIT 42.9 % (35.4-49); HEMOGLOBIN 14.3 GM/dL (11.7-16.9); MCH 28.2 pg (25.7-33.7); MCHC 33.3 g/dl (32.0-35.9); MEAN CELL VOLUME 84.7 fl (80-96); MEAN PLT VOLUME 8.5 fl (7.5-11.1); PLATELET COUNT 158 K/MM3 (134-434); RBC 5.07 M/mm3 (4.00-5.60); WHITE BLOOD COUNT 14.6 K/mm3 (4.0-10.0)
--- NOTE | 2020-07-11 10:05 | PN ---
S COWS - Scale Resting Pulse: 0= [place] 80 or Below Sweatin=Flushed/Facial Moisture Restless Observation: 1= Difficult to Sit Still Pupil Size: 0= Normal to Room Light Bone or Joint Aches: 2= Severe Diffuse Aches Runny Nose/ Eye Tearin= Nasal Congestion GI Upset > 30mins: 0= None Tremor Observation of Outstretched Hands: 1= Tremor [place], Not Seen Yawning Observation: 2= >3x During Session Anxiety or Irritability: 2=Irritable/Anxious Goose Flesh Skin: 3=Piloerection COWS Score: 14 S Progress Note (SOAP) Subjective: chills sweats body aches interrupted sleep restless muscle cramping nausea Objective: 07/11/20 10:04 Vital Signs Temperature 98.9 F 07/11/20 08:34 Pulse Rate 80 07/11/20 08:34 Respiratory Rate 16 07/11/20 08:34 Blood Pressure 132/80 07/11/20 08:34 O2 Sat by Pulse Oximetry (%) 98 07/11/20 08:34 labs pending aaox3 ambulating no acute distress Assessment: 07/11/20 10:04 withdrawals Plan: continue detox increase fluids valium 10mg prn x 3 days
[2020-07-11] MEDS: PRENATAL VITAMINS W/ FOLIC ACID TABLET (FP) PO SCH (10:06)
[2020-07-11] MEDS: PANTOPRAZOLE 40 MG TABLET PO SCH (10:07)
[2020-07-11] MEDS: NICOTINE 21 MG/24 HOURS TOPICAL PATCH TD SCH (10:07)
[2020-07-11] MEDS: METHOCARBAMOL 500 MG TABLET PO PRN (10:08)
[2020-07-11 12:21] LABS: POTASSIUM 3.8 mmol/L (3.5-5.1)
[2020-07-11 12:23] LABS: ALBUMIN 4.1 g/dl (3.4-5.0); BLOOD UREA NITROGEN 14.7 mg/dL (7-18); CALCIUM 9.5 mg/dL (8.5-10.1)
[2020-07-11 12:27] LABS: CREATININE 0.8 mg/dL (0.55-1.3)
[2020-07-11 12:28] LABS: BILIRUBIN,TOTAL 0.9 mg/dL (0.2-1); TOT PROT 7.9 g/dl (6.4-8.2)
--- NOTE | 2020-07-11 14:27 | EKG ---
Test Reason : Blood Pressure : / mmHG Vent. Rate : 074 BPM Atrial Rate : 074 BPM P-R Int : 150 ms QRS Dur : 086 ms QT Int : 420 ms P-R-T Axes : 047 039 042 degrees QTc Int : 466 ms SINUS RHYTHM WITH MARKED SINUS ARRHYTHMIA OTHERWISE NORMAL ECG NO PREVIOUS ECGS AVAILABLE Confirmed by MD ALEC, IVAN ([id number]) on 07/11/2020 2:26:54 PM Referred By: Confirmed By:IVAN MICHAEL MD
[2020-07-11] MEDS ORDERED: TRIMETHOBENZAMIDE HCL 300 MG CAPSULE PO PRN (15:44)
[2020-07-11] MEDS ORDERED: TRIMETHOBENZAMIDE HCL 200MG/2ML INJ IM ONE (17:20)
--- NOTE | 2020-07-11 17:24 | PN ---
[facility] Progress Note Note: Patient vomited x 1 Vital Signs Temperature 98.1 F 07/11/20 12:36 Pulse Rate 66 07/11/20 12:36 Respiratory Rate 16 07/11/20 12:36 Blood Pressure 122/77 07/11/20 12:36 O2 Sat by Pulse Oximetry (%) 100 07/11/20 12:36 Laboratory Last Values WBC 14.6 K/mm3 (4.0-10.0) H 07/11/20 06:52 RBC 5.07 M/mm3 (4.00-5.60) 07/11/20 06:52 Hgb 14.3 GM/dL (11.7-16.9) 07/11/20 06:52 Hct 42.9 % (35.4-49) D 07/11/20 06:52 MCV 84.7 fl (80-96) 07/11/20 06:52 MCH 28.2 pg (25.7-33.7) 07/11/20 06:52 MCHC 33.3 g/dl (32.0-35.9) 07/11/20 06:52 RDW 14.0 % (11.9-15.9) 07/11/20 06:52 Plt Count 158 K/MM3 (134-434) D 07/11/20 06:52 MPV 8.5 fl (7.5-11.1) D 07/11/20 06:52 Sodium 142 mmol/L (136-145) 07/11/20 11:11 Potassium 3.8 mmol/L (3.5-5.1) 07/11/20 11:11 Chloride 108 mmol/L (98-107) H 07/11/20 11:11 Carbon Dioxide 20 mmol/L (21-32) L 07/11/20 11:11 Anion Gap 13 MMOL/L (8-16) 07/11/20 11:11 BUN 14.7 mg/dL (7-18) 07/11/20 11:11 Creatinine 0.8 mg/dL (0.55-1.3) 07/11/20 11:11 Est GFR (CKD-EPI)AfAm 136.99 07/11/20 11:11 Est GFR (CKD-EPI)NonAf 118.20 07/11/20 11:11 Random Glucose 111 mg/dL (74-106) H 07/11/20 11:11 Calcium 9.5 mg/dL (8.5-10.1) 07/11/20 11:11 Total Bilirubin 0.9 mg/dL (0.2-1) 07/11/20 11:11 AST 21 U/L (15-37) 07/11/20 11:11 ALT 32 U/L (13-61) 07/11/20 11:11 Alkaline Phosphatase 79 U/L (45-117) 07/11/20 11:11 Total Protein 7.9 g/dl (6.4-8.2) 07/11/20 11:11 Albumin 4.1 g/dl (3.4-5.0) 07/11/20 11:11 Syphilis Serology Non-reactive (NONREACTIVE) 07/11/20 06:52 Action: Trimethobenzamide injection (Tigan injection) 200mg IM ordered
[2020-07-11] MEDS: MELATONIN 5 MG TABLETS PO SCH (21:41)
[2020-07-11] MEDS: diazePAM 5 MG TABLET PO PRN (21:41)
[2020-07-11] MEDS: THIAMINE HCL 100 MG TABLET (FP) PO SCH (21:42)
[2020-07-12] MEDS: diazePAM 5 MG TABLET PO PRN ×3 (06:02→22:09)
[2020-07-12] MEDS ORDERED: METHADONE HCL 10 MG TABLET (FOR DETOX USE ONLY) PO ONE (10:00)
[2020-07-12] MEDS: PRENATAL VITAMINS W/ FOLIC ACID TABLET (FP) PO SCH (10:13)
[2020-07-12] MEDS: NICOTINE 21 MG/24 HOURS TOPICAL PATCH TD SCH (10:13)
[2020-07-12] MEDS: PANTOPRAZOLE 40 MG TABLET PO SCH (10:13)
[2020-07-12] MEDS: METHOCARBAMOL 500 MG TABLET PO PRN ×2 (10:16→22:10)
--- NOTE | 2020-07-12 11:00 | PN ---
BHS COWS - Scale Resting Pulse: 1= [place] 81-100 Sweatin= Chills/Flushing Restless Observation: 1= Difficult to Sit Still Pupil Size: 0= Normal to Room Light Bone or Joint Aches: 2= Severe Diffuse Aches Runny Nose/ Eye Tearin= None GI Upset > 30mins: 0= None Tremor Observation of Outstretched Hands: 1= Tremor [employer], Not Seen Yawning Observation: 1= 1-2x During Session Anxiety or Irritability: 1=Feels Anxious/Irritable Goose Flesh Skin: 0=Smooth Skin COWS Score: 8 BHS Progress Note (SOAP) Subjective: sweats chills nausea Objective: 07/12/20 10:59 Vital Signs Temperature 98.6 F 07/12/20 08:41 Pulse Rate 89 07/12/20 08:41 Respiratory Rate 18 07/12/20 08:41 Blood Pressure 110/82 07/12/20 08:41 O2 Sat by Pulse Oximetry (%) 98 07/12/20 08:41 Laboratory Tests 07/11/20 07/11/20 07/11/20 06:52 06:52 11:11 WBC 14.6 H RBC 5.07 Hgb 14.3 Hct 42.9 D MCV 84.7 MCH 28.2 MCHC 33.3 RDW 14.0 Plt Count 158 D MPV 8.5 D Sodium 142 Potassium 3.8 Chloride 108 H Carbon Dioxide 20 L Anion Gap 13 BUN 14.7 Creatinine 0.8 Est GFR (CKD-EPI)AfAm 136.99 Est GFR (CKD-EPI)NonAf 118.20 Random Glucose 111 H Calcium 9.5 Total Bilirubin 0.9 AST 21 ALT 32 Alkaline Phosphatase 79 Total Protein 7.9 Albumin 4.1 Syphilis Serology Non-reactive aaox3 ambulating no acute distress Assessment: 07/12/20 10:59 withdrawals Plan: continue with detox encouraged to ask his nurse for tigan prn increase fluids
[2020-07-12] MEDS: THIAMINE HCL 100 MG TABLET (FP) PO SCH (22:08)
[2020-07-12] MEDS: MELATONIN 5 MG TABLETS PO SCH (22:09)
[2020-07-12] MEDS: MAG HYDROX/AL HYDROX/SIMETH 30 ML UNIT-DOSE CUP PO PRN (22:12)
[2020-07-13] MEDS: MAG HYDROX/AL HYDROX/SIMETH 30 ML UNIT-DOSE CUP PO PRN (06:23)
[2020-07-13] MEDS ORDERED: METHADONE HCL 5 MG TABLET (FOR DETOX USE ONLY) ONE (08:56)
[2020-07-13] MEDS ORDERED: METHADONE HCL 10 MG TABLET (FOR DETOX USE ONLY) ONE (08:57)
[2020-07-13] MEDS ORDERED: METHADONE (DETOX) 10 MG, METHADONE (DETOX) 5 MG PO ONE (10:00)
[2020-07-13] MEDS: TRIMETHOBENZAMIDE HCL 200MG/2ML INJ IM PRN ×2 (10:32→20:36)
--- NOTE | 2020-07-13 10:50 | PN ---
BHS COWS - Scale Resting Pulse: 0= [place] 80 or Below Sweatin= Chills/Flushing Restless Observation: 0= Sits Still Pupil Size: 0= Normal to Room Light Bone or Joint Aches: 1= Mild Discomfort Runny Nose/ Eye Tearin= None GI Upset > 30mins: 2= Nausea/Diarrhea Tremor Observation of Outstretched Hands: 0= None Yawning Observation: 0= None Anxiety or Irritability: 1=Feels Anxious/Irritable Goose Flesh Skin: 0=Smooth Skin COWS Score: 5 BHS Progress Note (SOAP) Subjective: nausea sweats irritable the tigan injection is better for me than the pills. Objective: 07/13/20 10:47 Vital Signs Temperature 96.9 F L 07/13/20 08:23 Pulse Rate 75 07/13/20 08:23 Respiratory Rate 16 07/13/20 08:23 Blood Pressure 141/62 07/13/20 08:23 O2 Sat by Pulse Oximetry (%) 96 07/13/20 06:10 Laboratory Tests 07/10/20 07/11/20 07/11/20 18:00 06:52 06:52 WBC 14.6 H RBC 5.07 Hgb 14.3 Hct 42.9 D MCV 84.7 MCH 28.2 MCHC 33.3 RDW 14.0 Plt Count 158 D MPV 8.5 D Sodium Potassium Chloride Carbon Dioxide Anion Gap BUN Creatinine Est GFR (CKD-EPI)AfAm Est GFR (CKD-EPI)NonAf Random Glucose Calcium Total Bilirubin AST ALT Alkaline Phosphatase Total Protein Albumin Syphilis Serology Non-reactive COVID-19 ([facility]) Not detected 07/11/20 11:11 WBC RBC Hgb Hct MCV MCH MCHC RDW Plt Count MPV Sodium 142 Potassium 3.8 Chloride 108 H Carbon Dioxide 20 L Anion Gap 13 BUN 14.7 Creatinine 0.8 Est GFR (CKD-EPI)AfAm 136.99 Est GFR (CKD-EPI)NonAf 118.20 Random Glucose 111 H Calcium 9.5 Total Bilirubin 0.9 AST 21 ALT 32 Alkaline Phosphatase 79 Total Protein 7.9 Albumin 4.1 Syphilis Serology COVID-19 ([facility]) labs noted aaox3 ambulating no acute distress Assessment: 07/13/20 10:49 withdrawals Plan: continue detox tigan IM prn ordered
[2020-07-13] MEDS ORDERED: MASKS NR ONE (10:52)
[2020-07-13] MEDS: PANTOPRAZOLE 40 MG TABLET PO SCH (11:20)
[2020-07-13] MEDS: PRENATAL VITAMINS W/ FOLIC ACID TABLET (FP) PO SCH (11:21)
[2020-07-13] MEDS: NICOTINE 21 MG/24 HOURS TOPICAL PATCH TD SCH (11:21)
[2020-07-13] MEDS: METHOCARBAMOL 500 MG TABLET PO PRN ×2 (11:23→22:13)
[2020-07-13] MEDS: diazePAM 5 MG TABLET PO PRN ×2 (11:24→22:13)
[2020-07-13] MEDS: THIAMINE HCL 100 MG TABLET (FP) PO SCH (22:13)
[2020-07-13] MEDS: MELATONIN 5 MG TABLETS PO SCH (22:13)
[2020-07-14] MEDS ORDERED: METHADONE HCL 10 MG TABLET (FOR DETOX USE ONLY) PO ONE (10:00)
[2020-07-14] MEDS: PANTOPRAZOLE 40 MG TABLET PO SCH (10:46)
[2020-07-14] MEDS: PRENATAL VITAMINS W/ FOLIC ACID TABLET (FP) PO SCH (10:46)
--- NOTE | 2020-07-14 10:48 | PN ---
BHS COWS - Scale Resting Pulse: 1= [place] 81-100 Sweatin= Chills/Flushing Restless Observation: 1= Difficult to Sit Still Pupil Size: 0= Normal to Room Light Bone or Joint Aches: 1= Mild Discomfort Runny Nose/ Eye Tearin= None GI Upset > 30mins: 0= None Tremor Observation of Outstretched Hands: 0= None Yawning Observation: 1= 1-2x During Session Anxiety or Irritability: 1=Feels Anxious/Irritable Goose Flesh Skin: 0=Smooth Skin COWS Score: 6 BHS Progress Note (SOAP) Subjective: sweats interrupted sleep Objective: 07/14/20 10:47 Vital Signs Temperature 98.4 F 07/14/20 09:09 Pulse Rate 90 07/14/20 09:09 Respiratory Rate 18 07/14/20 09:09 Blood Pressure 139/98 07/14/20 09:09 O2 Sat by Pulse Oximetry (%) 98 07/14/20 09:09 aaox3 ambulating no acute distress Assessment: 07/14/20 10:47 withdrawal sx Plan: continue detox d/c in am
[2020-07-14] MEDS: NICOTINE 21 MG/24 HOURS TOPICAL PATCH TD SCH (10:49)
[2020-07-14] MEDS ORDERED: diphenhydrAMINE HCL 25 MG CAPSULE (FP) PO ONE (20:47)
[2020-07-14] MEDS: THIAMINE HCL 100 MG TABLET (FP) PO SCH (22:43)
[2020-07-14] MEDS: MELATONIN 5 MG TABLETS PO SCH (22:43)
[2020-07-14] MEDS: METHOCARBAMOL 500 MG TABLET PO PRN (22:43)
[2020-07-15] MEDS ORDERED: METHADONE HCL 5 MG TABLET (FOR DETOX USE ONLY) PO ONE (06:00)
[2020-07-15] MEDS: METHOCARBAMOL 500 MG TABLET PO PRN (06:01)
[2020-07-15 09:17] VITALS: BP 159/81; PULSE 72; TEMP 98.1
--- NOTE | 2020-07-15 16:32 | DS ---
[facility] Detox Discharge Summary Admission Date: 07/10/20 Discharge Date: 07/15/20 - History Present History: Cocaine Dependence, Opioid Dependence Additional Comments: Patient going to stay with his Parents for remainder of weekend, then will attend either [facility] ([place], [place]) [facility] [place] [place] 07[facility]17/2020. Patient was discharged from Detox Unit in stable medical condition. Pertinent Past History: GERD, Nicotine Dependence. - Physical Exam Results Vital Signs: Vital Signs Temperature 98.1 F 07/15/20 08:25 Pulse Rate 72 07/15/20 08:25 Respiratory Rate 16 07/15/20 08:25 Blood Pressure 159/81 07/15/20 08:25 O2 Sat by Pulse Oximetry (%) 100 07/15/20 08:25 Pertinent Admission Physical Exam Findings: WITHDRAWAL SYMPTOMS. Laboratory Tests 07/10/20 07/11/20 07/11/20 18:00 06:52 06:52 WBC 14.6 H RBC 5.07 Hgb 14.3 Hct 42.9 D MCV 84.7 MCH 28.2 MCHC 33.3 RDW 14.0 Plt Count 158 D MPV 8.5 D Sodium Potassium Chloride Carbon Dioxide Anion Gap BUN Creatinine Est GFR (CKD-EPI)AfAm Est GFR (CKD-EPI)NonAf Random Glucose Calcium Total Bilirubin AST ALT Alkaline Phosphatase Total Protein Albumin Syphilis Serology Non-reactive COVID-19 ([facility]) Not detected 07/11/20 11:11 WBC RBC Hgb Hct MCV MCH MCHC RDW Plt Count MPV Sodium 142 Potassium 3.8 Chloride 108 H Carbon Dioxide 20 L Anion Gap 13 BUN 14.7 Creatinine 0.8 Est GFR (CKD-EPI)AfAm 136.99 Est GFR (CKD-EPI)NonAf 118.20 Random Glucose 111 H Calcium 9.5 Total Bilirubin 0.9 AST 21 ALT 32 Alkaline Phosphatase 79 Total Protein 7.9 Albumin 4.1 Syphilis Serology COVID-19 ([facility]) Lab results noted. - Treatment Hospital Course: Detox Protocol Followed, Detoxed Safely, Responded well, Discharged Condition Good, Rehab Referral Accepted Patient has Accepted a Rehab Referral to: Pt. to decide wheter [facility] ([place], [place]) or [facility] ([place] - Medication Discharge Medications: Ambulatory Orders Esomeprazole Mag Trihydrate [Nexium] 40 mg PO DAILY #30 capsule.ec 02/11/14 - Diagnosis (1) Nicotine dependence Status: Acute Qualifiers: Nicotine product type: cigarettes Substance use status: in withdrawal Qualified Code(s): F17.213 - Nicotine dependence, cigarettes, with withdrawal (2) Opioid dependence with withdrawal Status: Acute (3) Cocaine dependence Status: Chronic Qualifiers: Substance use status: in withdrawal Qualified Code(s): F14.23 - Cocaine dependence with withdrawal (4) Gastroesophageal reflux disease Status: Chronic Qualifiers: Esophagitis presence: esophagitis presence not specified Qualified Code(s): K21.9 - Gastro-esophageal reflux disease without esophagitis - AMA Did Patient Leave Against Medical Advice: No
== END 2020-07-15 09:52 | disposition home or self-care (01) | DRG 773 ==
LOC: YASAS 15:18 → Y6N 17:03
PROVIDERS: ADMIT Allergy & Immunology; ATTEND Allergy & Immunology
PROC: HZ2ZZZZ Detoxification Services for Substance Abuse Treatment (ICD-10-PCS; principal; 2020-07-10)
DX: F11.23 Opioid dependence with withdrawal (principal); F14.20 Cocaine dependence, uncomplicated; F13.10 Sedative, hypnotic or anxiolytic abuse, uncomplicated; F17.210 Nicotine dependence, cigarettes, uncomplicated; K21.9 Gastro-esophageal reflux disease without esophagitis; Z91.02 Food additives allergy status
CPT/HCPCS: 36415; 80053; 85027; 86780; 93005; 93010; C9803; J0735; Q0162; U0003